=== PATIENT | female | born 1940 | race Caucasian/White ===

== ENCOUNTER 2016-05-29 11:37 | Emergency (ER) | payer MEDICARE, OTHER ==
[~2016-05-29 11:37] MED LIST: ADVAIR 250/28 DISKU1 IH; CYCLOBENZ5 MG PO; DETROL LA4 PO; DEXILANT60 MG PO; FEOSOL45 M1 PO; GLUCOSAMINE CH1 EAC2 PO; IPRATROPIUM BROM3 M1 INH; MULTIVITAMIN1 SGL PO; SPIRIVA18 MCG INH; VITAMIN C PURE500 M1 PO
[2016-05-29] MEDS ORDERED: LEVAQUIN 750MG750 M1 PO (13:41)
[2016-05-29 14:38] VITALS: BP 126/82
[2016-05-29] MEDS ORDERED: PANTOPRAZOLE SO40 MG PO (17:24)
[2016-05-30] MEDS ORDERED: ADVAIR DISKUS1 DS2 IH (16:29)
[2016-05-30] MEDS ORDERED: RT SPIRIVA INH18 MCG IH (16:32)
[2016-05-30] MEDS ORDERED: CARVEDILOL3.125 MG PO (23:50)
[2016-06-20] MEDS ORDERED: SEPTRA 400 MG-1 TAB PO (16:09)
[2016-06-20] MEDS ORDERED: DIGOX0.125 MG PO (16:10)
== END 2016-05-29 14:59 | disposition other institution (70) ==
LOC: ED 11:37
DX: R06.00 Dyspnea, unspecified (principal); R09.02 Hypoxemia; J44.1 Chronic obstructive pulmonary disease with (acute) exacerbation; J44.0 Chronic obstructive pulmonary disease with (acute) lower respiratory infection
CPT/HCPCS: J2930; Q9967

== ENCOUNTER 2016-05-29 14:37 | Inpatient (IN) | payer MEDICARE, OTHER ==
[~2016-05-29 14:37] MED LIST changes: +LEVAQUIN 750MG750 M1 PO
--- NOTE | 2016-05-29 15:00 | NUR ---
Pt admitted to Rm #205 at this time from the ED, breathing stable on 10L O2 via Non Rebreather, at bedside, pt states she is "feeling much better" than prior when she arrived to the ED, recieved 1 dose of solumedrol and x2 breathing tx's in the ED, does not use O2 at home, states she feels she "just let her COPD slip away from her and get out of control," complex assessment completed, chronic pain mentioned in back, will have Reynaldo order a KPad for pain relief, denies pain anywhere else, 20G IV in Rt FA placed in ED by this nurse, still functioning appropriately, will get patient settled to room, oriented to call light, pt has a strong steady gait, fully alert and oriented, will continue with admission process at this time
[2016-05-29 15:24] VITALS: BP 124/70
[2016-05-29 16:08] VITALS: BP 124/70
[2016-05-29] MEDS ORDERED: PANTOPRAZOLE SO40 MG PO (17:24)
[2016-05-29 18:45] VITALS: BP 98/53
--- NOTE | 2016-05-29 20:06 | NUR ---
NOTIFIED YENNY BANKS AT THIS TIME OF PATIENT LOW BP THIS EVENING, AT SUPPER BP WAS 98/53, AT THIS TIME WE REASSED BP AND IT IS CURRENTLY 82/53, YENNY REPORTS LONG PT REMAINS ASYMPTOMATIC WE NEED TO PUSH THE FLUIDS AND MONITOR HER VITAL SIGNS CLOSELY, PT EDUCATED TO PLEASE ALERT STAFF IF SHE BEGINS FEELING SYMPTOMS AND SHE STATES "OH HONEY, I TYPICALLY RUN LOW, THIS IS NOT ANYTHING TO WORRY ABOUT YET.", WILL CONTINUE TO MONITOR PATIENT AND PUSH FLUIDS AT THIS TIME
--- NOTE | 2016-05-29 20:34 | NUR ---
Report received from Giovanna Smiley RN
--- NOTE | 2016-05-29 20:35 | NUR ---
Resting in bed, awake and a/o x 3. Pt doing breathing treatment at this time. Denies having any pain, SOB, or chest pain. Denies having any needs or concerns.
--- NOTE | 2016-05-29 22:54 | NUR ---
Pt resting in bed, awake and a/o x 3. Sitting up reading tablet. None re-breather removed and Nasal Cannula applied at 4L/NC. Pt denied pain or SOB.
[2016-05-29 22:56] VITALS: BP 111/66
[2016-05-30] VITALS (9 sets, daily range): BP systolic 94–143; BP diastolic 56–90
--- NOTE | 2016-05-30 00:45 | NUR ---
0017 to 0037 Pt given IV solu-medrol 125mg over 20 minutes. Tolerated without difficulty. IV site patent, no redness, no swelling and none tender to touch. Nasal Cannula on at 4L/NC. Pt Awake and a/o x 3. Pleasant and talkative. Pt visited with me while medication being given. Pt denied SOB, chest pain. Denied having any concerns.
--- NOTE | 2016-05-30 02:30 | NUR ---
Q hourly checks done. Bed alarm on. Eyes closed even, none labored respirations. Oxygen on at 4L/NC. Pt has repositioned self. Awaken for 0200 vital signs. Pt denied having any c/o's of pain or SOB.
--- NOTE | 2016-05-30 04:11 | NUR ---
Resting in bed, eyes closed, even, none labored respirations. Bed alarm on. No facial grimacing noted.
--- NOTE | 2016-05-30 05:38 | NUR ---
Awake and a/o x 3. Watching TV. Pt denies SOB, or chest pain. Denies having any concerns or needs. Oxygen on at 4L/NC.
--- NOTE | 2016-05-30 07:19 | NUR ---
Report given to Rema Rdz RN
--- NOTE | 2016-05-30 07:20 | NUR ---
REPORT RECEIVED FROM VALERIY SMITH
--- NOTE | 2016-05-30 08:00 | NUR ---
PATIENT LYING IN BED WITH HEAD OF BED ELEVATED. SHIFT ASSESSMENT COMPLETE. PATIENT ALERT AND ORIENTED X4. DENIES ANY PAIN OR DISCOMFORTS AT THIS TIME. REPORTS FEELING A LOT BETTER THIS MORNING. REPORTS NOT SLEEPING WELL LASTNIGHT. STATES "I DON'T THINK I'M GOING TO BE ABLE TO SLEEP FOR A MONTH WITH THESE STEROIDS" WHEN ASKED IF SHE WAS EXPERIENCING ANY SHORTNESS OF BREATH STATES "NO MORE THAN MY USUAL, WELL MAYBE SLIGHTLY MORE THAN MY USUAL BUT BARELY" ON OXYGEN VIA NASAL CANNULA AT 4L. STATES "I'M READY READY TO GO HOME" PATIENT'S CALL LIGHT WITHIN REACH. BED ALARM ON.
--- NOTE | 2016-05-30 10:30 | NUR ---
KIT GIRALDO IN TO SEE PATIENT.
--- NOTE | 2016-05-30 11:00 | NUR ---
patient's oxygen decreased to 3L via nasal cannula. sp02 88% on 3L when rechecked. oxygen turned back up to 4L oxygen via nasal cannula. anders torres notified.
--- NOTE | 2016-05-30 15:45 | NUR ---
TIGHTENER REPORTS THAT UPON ENTERING PATIENT'S ROOM TO TAKE PATIENT ON WALK PATIENT NOT WEARING OXYGEN. PATIENT AMBULATED TO NURSES STATION ON ROOM AIR AND BACK TO ROOM.SP02 84% UPON RETURNING FROM WALK. PATIENT PLACED BACK ON OXYGEN VIA NASAL CANNULA AT 4L. AMBULATED IN HALLS WITH 4L OXYGEN ON. SP02 90-91% ON 4L MAJORITY OF WALK. DROPPED DOWN TO 84% AT END OF WALK. PATIENT QUICKLY RECOVERED ONCE AT REST BACK TO LOW 90'S. PATIENT AMBULATED WITH STANDBY ASSIST OF 1 AND GAIT BELT. TOLERATED WALK WELL.
[2016-05-30] MEDS ORDERED: ADVAIR DISKUS1 DS2 IH (16:29)
[2016-05-30] MEDS ORDERED: RT SPIRIVA INH18 MCG IH (16:32)
--- NOTE | 2016-05-30 18:46 | NUR ---
Pt anticipates returning to her home upon discharge where she lives w/ her . The goal is for her to recover to where she does not need O2 as she has not had home O2 previously. She may benefit from a SWB stay to work w/ therapies for energy conservation to help keep her O2 sats >90%.
--- NOTE | 2016-05-30 19:20 | NUR ---
REPORT GIVEN TO VALERIY CHURCHILL
--- NOTE | 2016-05-30 21:04 | NUR ---
SANDING MACHINE OPERATOR OR TENDER assisted pt to restroom without O2. Pt O2 sat then checked after getting back to bed. Pt's O2 sat was 71% on RA. Oxygen then reapplied at 4L NC. Pt instructed to take deep breaths. After approx 1 min, O2 sat was in the low 90's. Pt and SANDING MACHINE OPERATOR OR TENDER instructed to have pt wear O2 at ALL times. Will cont to monitor.
--- NOTE | 2016-05-30 22:40 | NUR ---
Pt called RN into room stating she had an episode of sudden burning in the middle of the chest. States it is gone now and it only lasted 30 to 45 sec. Pulse checked and was in the 80's. Instructed pt to let RN know if it happens again
[2016-05-30] MEDS ORDERED: CARVEDILOL3.125 MG PO (23:50)
--- NOTE | 2016-05-30 23:50 | NUR ---
AT 2255, PT CALLED RN INTO ROOM STATING SHE WAS GETTING THAT SAME BURNING FEELING IN THE MIDDLE OF HER CHEST. VITAL SIGNS TAKEN: 132/82, HR IN 80', O2 96% ON 4L NC. PT THEN STATED THE BURNING/PRESSURE/PAIN THEN WAS GONE. WHILE RN WAS IN ROOM TALKING WITH PT, PT STATED "HERE COMES ANOTHER ONE". RN THEN CHECKED PULSE ON PT'S WRIST AND IT WAS RAPID. RN THEN DID AT EKG AT 2324 AND IT WAS THEN SINUS RHYTHM. AT 2325 PT THEN FELT ANOTHER EPISODE COME ON. ANOTHER EKG WAS OBTAINED AND IT SHOWED SVT WITH A HEART RATE OF 179. ALINA GREY ELIZABETH WAS THEN CALLED AT 2330. PT PLACED ON TELE TO KEEP A CLOSER EYE ON RHYTHMS. SHE ASKED THAT DR EASTON ASSESS PT AND GIVE ORDERS. IS NOW AT BEDSIDE. PT HAS HAD SEVERAL MORE EPISODES DURING THIS TIME. DR EASTON THEN GAVE THIS RN AN ORDER FOR METOPOLOL 5 MG IV. MED WAS GIVEN AT 2341. PT HAS HAD NO MORE EPISODES SINCE METOPOLOL WAS GIVEN. WILL CONT TO MONITOR CLOSELY.
[2016-05-31] VITALS (9 sets, daily range): BP systolic 93–145; BP diastolic 56–88
--- NOTE | 2016-05-31 01:05 | NUR ---
AT 0035, PT HAD 2 MORE EPISODES OF SVT FAIRLY CLOSE TOGETHER WITH HR IN 160'S. DR EASTON INFORMED. RECIEVED 2ND ORDER FOR METOPOLOL 5MG IV. MEDICATION GIVEN AT 0040. VS STABLE BEFORE AND AFTER MED GIVEN. PT INSTRUCTED AGAIN TO LET RN KNOW IF SHE HAS ANOTHER EPISODE AND THAT SHE IS ALSO BEING MONITORED. PT DENIES ANY OTHER NEEDS AT THIS TIME.
--- NOTE | 2016-05-31 02:55 | NUR ---
PT HAS NOT SLEPT YET TONIGHT. PT SITTING UP IN BED PLAYING ON TABLET. PT STATES SHE HAS HAD ONE VERY SMALL EPISODE SINCE LAST DOES OF IV METOPOLOL. STATES IT DIDN'T HURT BAD AND LASTED ONLY ABOUT 5 SEC. PT DENIES ANY PAIN OR NEEDS AT THIS TIME. STATES SHE WILL TRY TO GO TO SLEEP SOON. WILL CONT TO MONITOR.
--- NOTE | 2016-05-31 06:14 | NUR ---
END OF SHIFT NOTE: PT SLEPT VERY LITTLE THROUGHOUT THE NIGHT. PT HAS HAD ONLY 3 EPISODES OF SVT SINCE LAST METOPOLOL GIVEN AT 0040 AND THEY HAVE BEEN LESS SEVERE AND SHORTER IN LENGTH. FIRST ONE WAS APPROX 5 SEC AT 0144, 2ND WAS APPROX 30 SEC AT 0355 AND THIRD WAS APPROX 15 SEC AT 0359. I HAVE NOT SEEN PT HAVE ANY MORE ON THE MONITOR SINCE THEN. PT IS CURRENTLY RESTING WITH EYES CLOSED. SHE IS IN SR WITH HR IN THE 70'S. WILL CONT TO MONITOR.
--- NOTE | 2016-05-31 07:47 | NUR ---
REPORT GIVEN TO VALERIY ALANIZ.
--- NOTE | 2016-05-31 08:52 | NUR ---
Shift assessment complete. Pt sitting up in bed. O2 @ 3.5L via NC. Pt with several episodes of pain/burning to L chest this AM. Noted SVT on telemetry at these times. Episodes noted to last approx 30 seconds and pain subsides in 1-2 minutes. Pt reports having this pain in past but pain more intense during this hospitalization.
--- NOTE | 2016-05-31 09:48 | NUR ---
Pt refuses inhaler stating that "it makes me cough up green junk" also reports that it caused a "lung infection" in the past.
--- NOTE | 2016-05-31 10:05 | NUR ---
Laura Mathis APRN calls for update on pt. States she will be in to see pt this morning.
--- NOTE | 2016-05-31 10:37 | NUR ---
Laura Mathis APRN at bedside.
--- NOTE | 2016-05-31 19:01 | NUR ---
Contacted [facility] after hours to request services for a possible d/c tomorrow. Rep states that they normally only go out after hours for hospice contracts but they may be able to make an exception but would have to contact her human resources department supervisor. States that they do not have liquid O2 available, just O2 concentrators. States that they would need an order for O2 and Medicare form filled out with @ rest sats, activity sats and O2 needed for sats >90%.
--- NOTE | 2016-05-31 19:25 | NUR ---
Jolene received from Mary CROOKS. Patient sitting up in chair. Oxygen in place at 3.5L/NC. Tele on Reating HR 81. Denies pain or palpitations at this time. Denies wants or needs.
--- NOTE | 2016-05-31 20:25 | NUR ---
HR in 120-130's consistently past 20 minutes. Patient sitting in chair playing on IPAD. States "I can feel it but it doesn't burn or hurt.". at bedside. Patient stated she did "hot foot it to the door to catch my Grandaughter who forgot her flower, I bet that started it off". Belinda Mathis APRN notified. Order received to give dose of Coreg 6.25 MG PO now. Medication given. Assessment completed. Denies needs.
--- NOTE | 2016-05-31 21:40 | NUR ---
HR continues to be in 120-130 range. Patient without pain or Sx. Dr. Holm orders an EKG.
--- NOTE | 2016-05-31 22:45 | NUR ---
No change in HR, Continues in 120-130's. Patient reports a feeling of heaviness but no pain. B/{ 112/85. Resting in bed, playing games on IPAD. Laura Mathis APRN notified.
--- NOTE | 2016-05-31 23:16 | NUR ---
New INT #20 gauge started by Marjorie To RN. x1 attempt. Metoprolol 5 MG given IV over 5 Minutes by Marjorie To RN. Patient tolerated well. Continues to deny pain.
--- NOTE | 2016-05-31 23:30 | NUR ---
HR remains tachy at 110-130's. 2nd dose of IV Metoprolol admininstered by Javier CROOKS.
--- NOTE | 2016-06-01 00:12 | NUR ---
patient sleeping, resp even/unlabored, telemetry showed a 11 and half minute run of sinus tachycardia with a rate of 144, given 3rd dose of IV metoprolol per Belinda Mathis's order, will continue to monitor telemetry
--- NOTE | 2016-06-01 03:03 | NUR ---
Patient has been sleeping without pain or sx. HR 110-120's. Oxygen in place at 3.5L/NC. Bed alarm on. Call light in reach.
[2016-06-01 03:13] VITALS: BP 121/73
--- NOTE | 2016-06-01 04:08 | NUR ---
Rests with eyes closed. No signs of pain or distress. HR 110's.
--- NOTE | 2016-06-01 06:17 | NUR ---
Rocael calls to check on patient. Updated by Javier COROKS. New order to increase AM dose of Coreg to 12.5 MG.
[2016-06-01 06:34] VITALS: BP 113/85
--- NOTE | 2016-06-01 07:15 | NUR ---
Report to Mary CROOKS
--- NOTE | 2016-06-01 08:04 | NUR ---
Pt sitting up in bed. Shift assessment complete. HR continues between 102-120 and irregular. Pt denies pain or burning in chest this AM.
--- NOTE | 2016-06-01 09:13 | NUR ---
Laura Mathis APRN at pt bedside.
--- NOTE | 2016-06-01 10:15 | NUR ---
Per request of Laura Mathis APRN, check O2 sats, 93% on 3.5L O2, 84% RA while sitting, 86% RA during ambulation, added O2 during ambulation, 93% on 6L O2. Pt standing at nurses station talking with Laura Mathis APRN, states "things are starting to go caceres." Assist pt to sit in chair. Sits several minutes then is able to ambulate back to room without difficulty. Once seated back in room, return O2 to 3.5L.
[2016-06-01 10:58] VITALS: BP 97/53
[2016-06-01 15:05] VITALS: BP 95/55
--- NOTE | 2016-06-01 17:41 | NUR ---
Pt has denied chest pain/tightness/burning during current shift. HR has fluctuated between 97-130's today. Pt continues in Afib.
[2016-06-01 18:29] VITALS: BP 101/64
--- NOTE | 2016-06-01 19:15 | NUR ---
Report received from Syed Quick RN and care assumed. Pt resting in chair, no needs or concerns at this time. Family in room. Call light in reach, bed alarm on.
--- NOTE | 2016-06-01 22:32 | NUR ---
Pt resting in bed with no needs or concerns at this time. Denies pain. Report given to Luana Jenkins, COFFEE SHOP ATTENDANT and care transfered. Call light in reach, bed alarm on.
--- NOTE | 2016-06-01 22:33 | NUR ---
Report received from Ileana CROOKS. Patient restsing supine in bed playing on IPAD. Oxygen in place at 3.5L/NC. Denies pain. HR continues in Afib at rate 100-110s per TELE.
[2016-06-01 23:11] VITALS: BP 120/71
--- NOTE | 2016-06-01 23:30 | NUR ---
Awaken for scheduled Cardizem. Denies pain. Oxygen in place. HR 100-120's remains in Afib.
[2016-06-02 03:18] VITALS: BP 129/74
--- NOTE | 2016-06-02 03:41 | NUR ---
Rests with eyes closed. No signs of pain or distress. HR 77, continues in A-fib.
--- NOTE | 2016-06-02 05:36 | NUR ---
Awaken for AM V/S and scheduled Diltiazem. VSS. Denies pain. Telemetry shows A-fib, rate controlled. Denies wants or needs.
[2016-06-02 06:20] VITALS: BP 121/79
--- NOTE | 2016-06-02 07:22 | NUR ---
Report to Tita CROOKS
--- NOTE | 2016-06-02 07:30 | NUR ---
report from Ivanna BLUE
--- NOTE | 2016-06-02 07:50 | NUR ---
Belinda Mathis APRN at [facility], discuss plan of care.
--- NOTE | 2016-06-02 09:45 | NUR ---
Vandana Mathis APRN notified of patients request to not take Coumadin but use an alternate that has no dietary restrictions.
--- NOTE | 2016-06-02 09:59 | NUR ---
up in chair, spouse is visiting, oxygen remains at 3.5l/nc continuous, denies complian tor request
--- NOTE | 2016-06-02 10:48 | NUR ---
several attempts to make a follow-up appointment with Dr. Baron, office states he is not in [place] until 06/20, attempting to make an appiontment in [place] to see him sooner.
[2016-06-02] MEDS ORDERED: CARDIZEM CD240 M1 PO (10:51)
[2016-06-02] MEDS ORDERED: PREDNISONE20 MG PO (10:51)
[2016-06-02] MEDS ORDERED: ELIQUIS2.5 MG PO (10:51)
[2016-06-02] MEDS ORDERED: CARVEDILOL6.25 MG PO (10:51)
[2016-06-02 11:22] VITALS: BP 80/53
[2016-06-02 15:17] VITALS: BP 124/51
--- NOTE | 2016-06-02 16:01 | NUR ---
home isntructions are reviewed with patient and she expresses understanding, there is much discussion about new home meds and current home meds, she expresses eagerness to go home
--- NOTE | 2016-06-02 16:23 | NUR ---
spouse returns with home portable oxygen, patient and spouse discuss workings of oxygen, patient is placed on her own at 4l/nc, to w/c dismissed to care of spouse, home per POV.
[2016-06-20] MEDS ORDERED: SEPTRA 400 MG-1 TAB PO (16:09)
[2016-06-20] MEDS ORDERED: DIGOX0.125 MG PO (16:10)
== END 2016-06-02 16:22 | disposition home or self-care (01) | DRG 191 ==
LOC: MED/SURG 14:37
PROVIDERS: ADMIT Physician Assistant
DX: J44.0 Chronic obstructive pulmonary disease with (acute) lower respiratory infection (principal); I47.1 Supraventricular tachycardia; J20.8 Acute bronchitis due to other specified organisms; I48.91 Unspecified atrial fibrillation; J44.1 Chronic obstructive pulmonary disease with (acute) exacerbation; R09.02 Hypoxemia; K21.9 Gastro-esophageal reflux disease without esophagitis; D64.9 Anemia, unspecified; R59.0 Localized enlarged lymph nodes; Z87.891 Personal history of nicotine dependence
CPT/HCPCS: J1650; J1956; J2930; J7512

== ENCOUNTER → 2016-06-04 | Outpatient (CLI) | payer MEDICARE, OTHER ==
[~2016-06-04] MED LIST changes: +ADVAIR DISKUS1 DS2 IH; +CARDIZEM CD240 M1 PO; +CARVEDILOL3.125 MG PO; +CARVEDILOL6.25 MG PO; +COREG 3.123.125 MG/T PO; +DIGOX0.125 MG PO; +ELIQUIS2.5 MG PO; +PANTOPRAZOLE SO40 MG PO; +PREDNISONE20 M1 PO; +PREDNISONE20 MG PO; +RT SPIRIVA INH18 MCG IH; +SEPTRA 400 MG-1 TAB PO
== END ==
LOC: VAS 16:23
DX: I48.91 Unspecified atrial fibrillation (principal)

== ENCOUNTER → 2016-06-18 | Outpatient (CLI) | payer MEDICARE, OTHER ==
[2016-06-02 15:17] VITALS: BP 124/51
== END ==
LOC: LAB 10:23
DX: I48.91 Unspecified atrial fibrillation (principal)

== ENCOUNTER → 2016-06-20 | Outpatient (CLI) | payer MEDICARE, OTHER ==
[2016-06-20 16:12] VITALS: BP 116/56
== END ==
LOC: AMSURD 16:01
DX: I48.0 Paroxysmal atrial fibrillation (principal)

== ENCOUNTER → 2016-07-04 | Outpatient (CLI) | payer MEDICARE, OTHER ==
[2016-07-04 10:36] VITALS: BP 98/48
== END ==
LOC: AMSURD 10:31
DX: I48.91 Unspecified atrial fibrillation (principal)

== ENCOUNTER → 2016-08-19 | Day surgery (SDC) | payer MEDICARE ==
[2016-07-04 10:36] VITALS: BP 98/48
== END ==
LOC: MSO 11:26
DX: Z12.11 Encounter for screening for malignant neoplasm of colon (principal); K62.1 Rectal polyp; K63.5 Polyp of colon; D12.2 Benign neoplasm of ascending colon; K57.30 Diverticulosis of large intestine without perforation or abscess without bleeding; Z86.010 Personal history of colon polyps; I48.91 Unspecified atrial fibrillation; Z87.891 Personal history of nicotine dependence; J44.9 Chronic obstructive pulmonary disease, unspecified; K21.9 Gastro-esophageal reflux disease without esophagitis; Z80.0 Family history of malignant neoplasm of digestive organs
CPT/HCPCS: 00810; J3010; J7120

== ENCOUNTER 2016-10-06 01:25 | Emergency (ER) | payer MEDICARE ==
[~2016-10-06] VITALS: Ht 170.2 cm; Wt 47.7 kg
[~2016-10-06 01:25] MED LIST changes: -COREG 3.123.125 MG/T PO; -PREDNISONE20 M1 PO
[2016-10-06] MEDS ORDERED: COREG 3.123.125 MG/T PO (02:05)
[2016-10-06] MEDS ORDERED: LEVAQUIN 750MG750 M1 PO (03:40)
[2016-10-06] MEDS ORDERED: PREDNISONE20 M1 PO (03:40)
[2016-10-06 04:48] VITALS: BP 99/48
== END 2016-10-06 04:48 | disposition home or self-care (01) ==
LOC: ED 01:25
DX: J44.0 Chronic obstructive pulmonary disease with (acute) lower respiratory infection (principal); J18.9 Pneumonia, unspecified organism; I48.91 Unspecified atrial fibrillation; Z79.01 Long term (current) use of anticoagulants; I95.9 Hypotension, unspecified; J96.01 Acute respiratory failure with hypoxia; E87.1 Hypo-osmolality and hyponatremia; D64.9 Anemia, unspecified; K21.9 Gastro-esophageal reflux disease without esophagitis; Z99.81 Dependence on supplemental oxygen
CPT/HCPCS: J0696; J2930; J3370; J7030; J7050

== ENCOUNTER → 2016-10-23 | Outpatient (CLI) | payer MEDICARE ==
[2016-10-06 04:48] VITALS: BP 99/48
[~2016-10-23] MED LIST changes: +COREG 3.123.125 MG/T PO; +PREDNISONE20 M1 PO
== END ==
LOC: RAD 13:56
DX: Z87.01 Personal history of pneumonia (recurrent) (principal)

== ENCOUNTER 2016-11-27 15:42 | Emergency (ER) | payer MEDICARE ==
[2016-11-27] MEDS ORDERED: GOOD NEIGHBOR150 MG PO (15:57)
[2016-11-27 17:50] VITALS: BP 136/57
== END 2016-11-27 17:44 | disposition home or self-care (01) ==
LOC: ED 15:42
DX: K81.9 Cholecystitis, unspecified (principal); J44.9 Chronic obstructive pulmonary disease, unspecified; C67.9 Malignant neoplasm of bladder, unspecified; K21.9 Gastro-esophageal reflux disease without esophagitis; I71.9 Aortic aneurysm of unspecified site, without rupture; Z79.01 Long term (current) use of anticoagulants; I48.91 Unspecified atrial fibrillation
CPT/HCPCS: J2405; J3010; Q9967

== ENCOUNTER → 2017-12-02 | Outpatient (CLI) | payer MEDICARE, OTHER ==
[~2017-12-02] MED LIST changes: +GOOD NEIGHBOR150 MG PO
[2017-12-02 15:54] LABS: EOS # 0.1 (0.04-0.40); EOS % 1.7 % (1.0-5.0); HEMATOCRIT 38.2 % (37.0-47.0); HEMOGLOBIN 12.1 g/dL (12.5-16.0); LYMPH# 1.3 (1.50-4.00); MEAN CELL VOLUME 101 fl (78-100); MEAN CORPUSCULAR HEMOGLOBIN 32 pg (27-31); MEAN CORPUSCULAR HGB CONC 32 g/dL (33-37); MEAN PLATELET VOLUME 9.3 fl (7.4-10.4); MONO # 0.5 (0.20-0.80); NEU # 3.3 (1.40-6.50); PLATELET COUNT 220 K/mm3 (130-400); RED BLOOD COUNT 3.79 M/mm3 (4.10-5.30); RED CELL DISTRIBUTION WIDTH 14.6 % (11.5-14.5); WHITE BLOOD COUNT 5.2 K/mm3 (4.8-10.8)
[2017-12-02 15:59] LABS: ALBUMIN 4.1 g/dL (3.5-5.0); CALCIUM 9.4 mg/dL (8.4-10.2); POTASSIUM 3.6 mmol/L (3.6-5.0); TOTAL BILIRUBIN 0.9 mg/dL (0.2-1.3)
[2017-12-02 18:43] LABS: URINE APPEARANCE CLEAR; URINE COLOR YELLOW
[2017-12-02 18:44] LABS: URINE BILIRUBIN NEGATIVE (NEGATIVE); URINE BLOOD NEGATIVE (NEGATIVE); URINE GLUCOSE NEGATIVE (NEGATIVE); URINE KETONE NEGATIVE (NEGATIVE); URINE LEUKOCYTE ESTERASE NEGATIVE (NEGATIVE); URINE NITRATE NEGATIVE (NEGATIVE); URINE PROTEIN(semi-quant) NEGATIVE (NEGATIVE); URINE UROBILINOGEN NORMAL (NORMAL); URINE WBC 0-1 /hpf (0-3)
== END ==
LOC: RAD 14:57
PROVIDERS: Physician Assistant
DX: R63.4 Abnormal weight loss (principal); R19.7 Diarrhea, unspecified

== ENCOUNTER → 2017-12-04 | Outpatient (CLI) | payer MEDICARE, OTHER | LOC: LAB 12:37 | DX: R19.7 Diarrhea, unspecified (principal); R63.4 Abnormal weight loss ==

== ENCOUNTER → 2017-12-12 | Outpatient (CLI) | payer MEDICARE, OTHER | LOC: LAB 12:01 | DX: R19.7 Diarrhea, unspecified (principal); R63.4 Abnormal weight loss ==

== ENCOUNTER → 2017-12-30 | Outpatient (CLI) | payer MEDICARE, OTHER ==
[~2017-12-30] VITALS: Ht 170.2 cm; Wt 47.7 kg
[2017-12-30 14:04] VITALS: BP 112/69
== END ==
LOC: AMSURD 13:49
DX: I48.0 Paroxysmal atrial fibrillation (principal)

== ENCOUNTER → 2018-05-27 | Outpatient (CLI) | payer MEDICARE, OTHER ==
[2017-12-30 14:04] VITALS: BP 112/69
== END ==
LOC: LAB 17:36
DX: J18.9 Pneumonia, unspecified organism (principal); J44.9 Chronic obstructive pulmonary disease, unspecified; B37.0 Candidal stomatitis; R09.02 Hypoxemia

== ENCOUNTER → 2018-05-27 | Outpatient (CLI) | payer MEDICARE, OTHER ==
[2017-12-30 14:04] VITALS: BP 112/69
[2018-05-27 16:44] LABS: ALBUMIN 4.1 g/dL (3.5-5.0); CALCIUM 9.4 mg/dL (8.4-10.2); TOTAL BILIRUBIN 0.3 mg/dL (0.2-1.3); TOTAL PROTEIN 7.2 g/dL (6.3-8.2)
[2018-05-27 16:46] LABS: EOS # 0.1 (0.04-0.40); HEMATOCRIT 38.5 % (37.0-47.0); HEMOGLOBIN 11.9 g/dL (12.5-16.0); LYMPH# 1.4 (1.50-4.00); MEAN CELL VOLUME 100 fl (78-100); MEAN CORPUSCULAR HEMOGLOBIN 31 pg (27-31); MEAN CORPUSCULAR HGB CONC 31 g/dL (33-37); MEAN PLATELET VOLUME 9.3 fl (7.4-10.4); MONO # 0.5 (0.20-0.80); NEU # 3.2 (1.40-6.50); PLATELET COUNT 175 K/mm3 (130-400); RED BLOOD COUNT 3.87 M/mm3 (4.10-5.30); RED CELL DISTRIBUTION WIDTH 15.2 % (11.5-14.5); WHITE BLOOD COUNT 5.1 K/mm3 (4.8-10.8)
== END ==
LOC: LAB 16:22
PROVIDERS: Physician Assistant
DX: J18.9 Pneumonia, unspecified organism (principal); B37.0 Candidal stomatitis; J44.9 Chronic obstructive pulmonary disease, unspecified; R09.02 Hypoxemia

== ENCOUNTER → 2018-06-25 | Outpatient (CLI) | payer MEDICARE, OTHER ==
[2018-06-23 11:13] VITALS: BP 118/76
[~2018-06-25] MED LIST changes: +ACIDOPHILUS1 EAC3 PO; +AZITHROMYCIN500 M2 PO; +DIFLUCAN100 M1 PO; +MIRAPEX0.5 MG PO; +MUCINEX 60600 MG/TA1 PO; +REQUIP 0.5MG0.5 MG PO; +XYZAL5 MG PO
[2018-06-25 16:08] LABS: HEMATOCRIT 37.6 % (37.0-47.0); HEMOGLOBIN 11.6 g/dL (12.5-16.0); MEAN CELL VOLUME 98 fl (78-100); MEAN CORPUSCULAR HEMOGLOBIN 30 pg (27-31); MEAN CORPUSCULAR HGB CONC 31 g/dL (33-37); MEAN PLATELET VOLUME 9.2 fl (7.4-10.4); PLATELET COUNT 275 K/mm3 (130-400); RED BLOOD COUNT 3.85 M/mm3 (4.10-5.30); RED CELL DISTRIBUTION WIDTH 15.3 % (11.5-14.5); WHITE BLOOD COUNT 8.7 K/mm3 (4.8-10.8)
[2018-06-25 16:17] LABS: ALBUMIN 3.9 g/dL (3.5-5.0); CALCIUM 9.2 mg/dL (8.4-10.2); POTASSIUM 4.3 mmol/L (3.6-5.0); TOTAL BILIRUBIN 0.6 mg/dL (0.2-1.3); TOTAL PROTEIN 6.9 g/dL (6.3-8.2)
[2018-06-25 16:39] LABS: LYMPHOCYTE 14 % (20-51); MONOCYTE 10 % (3-10); NEUTROPHILS 76 % (42-75)
[2018-06-25 16:40] LABS: D-DIMER 0.65 mg/L FEU (0.15-0.50)
== END ==
LOC: LAB 15:42
PROVIDERS: Physician Assistant
DX: R60.0 Localized edema (principal); K21.9 Gastro-esophageal reflux disease without esophagitis; I48.91 Unspecified atrial fibrillation; J44.9 Chronic obstructive pulmonary disease, unspecified

== ENCOUNTER → 2018-07-06 | Outpatient (CLI) | payer MEDICARE, OTHER ==
[2018-06-23 11:13] VITALS: BP 118/76
[2018-07-06 17:11] LABS: ALBUMIN 3.4 g/dL (3.4-4.8); CALCIUM 9.3 mg/dL (8.4-10.2); POTASSIUM 4.2 mmol/L (3.5-5.1); TOTAL BILIRUBIN 0.4 mg/dL (0.2-1.2); TOTAL PROTEIN 5.7 g/dL (6.2-8.1)
[2018-07-06 17:50] LABS: EOS % 0.1 % (1.0-5.0); HEMATOCRIT 38.2 % (37.0-47.0); HEMOGLOBIN 11.6 g/dL (12.5-16.0); MEAN CELL VOLUME 99 fl (78-100); MEAN CORPUSCULAR HEMOGLOBIN 30 pg (27-31); MEAN CORPUSCULAR HGB CONC 30 g/dL (33-37); MEAN PLATELET VOLUME 8.6 fl (7.4-10.4); MONO # 0.9 (0.20-0.80); NEU # 5.1 (1.40-6.50); PLATELET COUNT 275 K/mm3 (130-400); RED BLOOD COUNT 3.86 M/mm3 (4.10-5.30); RED CELL DISTRIBUTION WIDTH 16.1 % (11.5-14.5); WHITE BLOOD COUNT 8.1 K/mm3 (4.8-10.8)
== END ==
LOC: LAB 16:04
PROVIDERS: Physician Assistant
DX: I48.91 Unspecified atrial fibrillation (principal); J44.9 Chronic obstructive pulmonary disease, unspecified; I95.9 Hypotension, unspecified; K29.70 Gastritis, unspecified, without bleeding; B37.9 Candidiasis, unspecified

== ENCOUNTER → 2018-07-20 | Outpatient (CLI) | payer MEDICARE, OTHER ==
[2018-06-23 11:13] VITALS: BP 118/76
[2018-07-20 16:33] LABS: CALCIUM 9.9 mg/dL (8.4-10.2); DIGOXIN 1.9 ng/mL (0.8-2.0)
== END ==
LOC: LAB 15:16
PROVIDERS: Physician Assistant
DX: I48.0 Paroxysmal atrial fibrillation (principal)

== ENCOUNTER → 2018-08-13 | Outpatient (CLI) | payer MEDICARE, OTHER ==
[2018-06-23 11:13] VITALS: BP 118/76
== END ==
LOC: RAD 08:43
DX: K29.70 Gastritis, unspecified, without bleeding (principal); K76.89 Other specified diseases of liver; D50.9 Iron deficiency anemia, unspecified; R10.13 Epigastric pain
CPT/HCPCS: Q9967

== ENCOUNTER → 2018-10-14 | Day surgery (SDC) | payer MEDICARE, OTHER ==
[2018-06-23 11:13] VITALS: BP 118/76
== END ==
LOC: MSO 07:28
DX: Z12.11 Encounter for screening for malignant neoplasm of colon (principal); D12.8 Benign neoplasm of rectum; D12.5 Benign neoplasm of sigmoid colon; K63.5 Polyp of colon; J44.9 Chronic obstructive pulmonary disease, unspecified; G25.81 Restless legs syndrome; Z79.01 Long term (current) use of anticoagulants; I48.91 Unspecified atrial fibrillation; K21.9 Gastro-esophageal reflux disease without esophagitis; D64.9 Anemia, unspecified; I49.3 Ventricular premature depolarization; Z82.5 Family history of asthma and other chronic lower respiratory diseases; Z82.49 Family history of ischemic heart disease and other diseases of the circulatory system; Z86.010 Personal history of colon polyps; Z80.0 Family history of malignant neoplasm of digestive organs; Z90.710 Acquired absence of both cervix and uterus; Z95.0 Presence of cardiac pacemaker
CPT/HCPCS: 00811; J2704; J7120

== ENCOUNTER → 2019-10-20 | Day surgery (SDC) | payer MEDICARE, OTHER ==
[2018-06-23 11:13] VITALS: BP 118/76
== END ==
LOC: MSO 07:01
DX: K21.9 Gastro-esophageal reflux disease without esophagitis (principal); K22.70 Barrett's esophagus without dysplasia; K22.2 Esophageal obstruction; B37.81 Candidal esophagitis; D50.9 Iron deficiency anemia, unspecified; J43.9 Emphysema, unspecified; Z80.0 Family history of malignant neoplasm of digestive organs; Z86.010 Personal history of colon polyps; Z85.51 Personal history of malignant neoplasm of bladder; Z90.710 Acquired absence of both cervix and uterus; Z99.81 Dependence on supplemental oxygen
CPT/HCPCS: 00731; C1769; J2704; J7120

== ENCOUNTER → 2020-06-08 | Outpatient (CLI) | payer MEDICARE, OTHER ==
[2018-06-23 11:13] VITALS: BP 118/76
[~2020-06-08] MED LIST changes: +ALBUTEROL2.5 MG/3 M IH; +VIBRAMYCIN HYC100 MG PO
[2020-06-08 16:38] LABS: EOS # 0.1 (0.04-0.40); EOS % 1.3 % (1.0-5.0); HEMATOCRIT 40.6 % (37.0-47.0); HEMOGLOBIN 12.9 g/dL (12.5-16.0); LYMPH# 1.8 (1.50-4.00); MEAN CELL VOLUME 101 fl (78-100); MEAN CORPUSCULAR HEMOGLOBIN 32 pg (27-31); MEAN CORPUSCULAR HGB CONC 32 g/dL (33-37); MEAN PLATELET VOLUME 9.4 fl (7.4-10.4); MONO # 0.4 (0.20-0.80); PLATELET COUNT 177 K/mm3 (130-400); RED BLOOD COUNT 4.01 M/mm3 (4.10-5.30); RED CELL DISTRIBUTION WIDTH 14.2 % (11.5-14.5); WHITE BLOOD COUNT 5.4 K/mm3 (4.8-10.8)
[2020-06-08 16:58] LABS: POTASSIUM 4.3 mmol/L (3.5-5.1)
[2020-06-08 16:59] LABS: ALBUMIN 4.5 g/dL (3.4-4.8)
[2020-06-08 17:00] LABS: CALCIUM 9.7 mg/dL (8.3-10.5)
[2020-06-08 17:01] LABS: TOTAL PROTEIN 7.8 g/dL (6.2-8.1)
[2020-06-08 17:03] LABS: TOTAL BILIRUBIN 0.4 mg/dL (0.2-1.2)
== END ==
LOC: LAB 16:17
PROVIDERS: Physician Assistant
DX: Z00.00 Encounter for general adult medical examination without abnormal findings (principal); Z13.29 Encounter for screening for other suspected endocrine disorder; K90.9 Intestinal malabsorption, unspecified

== ENCOUNTER → 2020-06-26 | Outpatient (CLI) | payer MEDICARE, OTHER ==
[2018-06-23 11:13] VITALS: BP 118/76
== END ==
LOC: RAD 11:05
DX: K46.9 Unspecified abdominal hernia without obstruction or gangrene (principal); I71.4 Abdominal aortic aneurysm, without rupture

== ENCOUNTER → 2020-10-25 | Day surgery (SDC) | payer MEDICARE, OTHER | LOC: MSO 07:05 | DX: Z12.11 Encounter for screening for malignant neoplasm of colon (principal); D12.3 Benign neoplasm of transverse colon; K21.00 Gastro-esophageal reflux disease with esophagitis, without bleeding; K22.70 Barrett's esophagus without dysplasia; J44.9 Chronic obstructive pulmonary disease, unspecified; I48.0 Paroxysmal atrial fibrillation; I71.4 Abdominal aortic aneurysm, without rupture; I47.1 Supraventricular tachycardia; I49.3 Ventricular premature depolarization; G89.29 Other chronic pain; M19.90 Unspecified osteoarthritis, unspecified site; Z90.49 Acquired absence of other specified parts of digestive tract; Z85.51 Personal history of malignant neoplasm of bladder; Z90.710 Acquired absence of both cervix and uterus; Z79.899 Other long term (current) drug therapy; Z95.0 Presence of cardiac pacemaker; Z87.19 Personal history of other diseases of the digestive system | CPT/HCPCS: 00813; C1769; J2704; J7120 ==

== ENCOUNTER 2020-11-27 15:44 | Emergency (ER) | payer MEDICARE, OTHER ==
[~2020-11-27] VITALS: Ht 170.2 cm; Wt 47.6 kg
[~2020-11-27 15:44] MED LIST changes: -ALBUTEROL2.5 MG/3 M IH; -VIBRAMYCIN HYC100 MG PO
[2020-11-27 17:06] LABS: BASO # 0.02 (0.02-0.10); EOS # 0.05 (0.04-0.40); EOS % 1.2 % (1.0-5.0); HEMATOCRIT 37.4 % (37.0-47.0); HEMOGLOBIN 11.5 g/dL (12.5-16.0); LYMPH# 1.23 (1.50-4.00); MEAN CELL VOLUME 105 fl (78-100); MEAN CORPUSCULAR HEMOGLOBIN 32 pg (27-31); MEAN CORPUSCULAR HGB CONC 31 g/dL (33-37); MEAN PLATELET VOLUME 9.7 fl (7.4-10.4); MONO # 0.41 (0.20-0.80); NEU # 2.49 (1.40-6.50); PLATELET COUNT 128 K/mm3 (130-400); RED BLOOD COUNT 3.56 M/mm3 (4.10-5.30); RED CELL DISTRIBUTION WIDTH 14.2 % (11.5-14.5); WHITE BLOOD COUNT 4.2 K/mm3 (4.8-10.8)
[2020-11-27 17:11] LABS: ALBUMIN 3.8 g/dL (3.4-4.8); SODIUM 144 mmol/L (136-145)
[2020-11-27 17:12] LABS: CALCIUM 9.6 mg/dL (8.3-10.5)
[2020-11-27 17:13] LABS: D-DIMER 0.3 mg/L FEU (0.15-0.50); GLUCOSE 103 mg/dL (65-105)
[2020-11-27 17:14] LABS: TOTAL PROTEIN 6.7 g/dL (6.2-8.1)
[2020-11-27 17:15] LABS: CARBON DIOXIDE 26 mmol/L (23-31); TOTAL BILIRUBIN 0.3 mg/dL (0.2-1.2)
[2020-11-27 17:19] LABS: AST-SGOT 39 U/L (5-34)
[2020-11-27 17:20] LABS: ALT/SGPT 22 U/L (0-55)
[2020-11-27 17:33] LABS: TROPONIN-I < 0.03 ng/mL (<0.030)
[2020-11-27] MEDS ORDERED: ALBUTEROL2.5 MG/3 M IH (19:17)
[2020-11-27] MEDS ORDERED: PREDNISONE20 M1 PO (19:17)
[2020-11-27] MEDS ORDERED: VIBRAMYCIN HYC100 MG PO (19:17)
[2020-11-27 19:39] VITALS: BP 155/79
== END 2020-11-27 19:39 | disposition home or self-care (01) ==
LOC: ED 15:44
PROVIDERS: Nurse Practitioner Family
DX: I50.9 Heart failure, unspecified (principal); J44.9 Chronic obstructive pulmonary disease, unspecified; I48.91 Unspecified atrial fibrillation; K21.9 Gastro-esophageal reflux disease without esophagitis; F17.210 Nicotine dependence, cigarettes, uncomplicated; Z79.01 Long term (current) use of anticoagulants; Z79.52 Long term (current) use of systemic steroids; Z79.899 Other long term (current) drug therapy
CPT/HCPCS: J1885; J2930

== ENCOUNTER 2020-12-28 02:54 | Emergency (ER) | payer MEDICARE, OTHER ==
[~2020-12-28] VITALS: Ht 170.2 cm; Wt 47.6 kg
[~2020-12-28 02:54] MED LIST changes: +ALBUTEROL2.5 MG/3 M IH; +VIBRAMYCIN HYC100 MG PO
[2020-12-28 03:24] LABS: BASO # 0.02 K/mm3 (0.02-0.10); EOS # 0.02 K/mm3 (0.04-0.40); EOS % 0.4 % (1.0-5.0); HEMATOCRIT 41.6 % (37.0-47.0); HEMOGLOBIN 12.8 g/dL (12.5-16.0); MEAN CELL VOLUME 104 fl (78-100); MEAN CORPUSCULAR HEMOGLOBIN 32 pg (27-31); MEAN CORPUSCULAR HGB CONC 31 g/dL (33-37); MEAN PLATELET VOLUME 9.1 fl (7.4-10.4); MONO # 0.35 K/mm3 (0.20-0.80); NEU # 3.03 K/mm3 (1.40-6.50); PLATELET COUNT 177 K/mm3 (130-400); RED BLOOD COUNT 4.02 M/mm3 (4.10-5.30); WHITE BLOOD COUNT 4.9 K/mm3 (4.8-10.8)
[2020-12-28 03:32] LABS: ALBUMIN 3.9 g/dL (3.4-4.8)
[2020-12-28 03:33] LABS: POTASSIUM 4.2 mmol/L (3.5-5.1)
[2020-12-28 03:34] LABS: CALCIUM 9.8 mg/dL (8.3-10.5)
[2020-12-28 03:37] LABS: TOTAL BILIRUBIN 0.8 mg/dL (0.2-1.2)
[2020-12-28 03:48] LABS: TROPONIN-I 0.32 ng/mL (<0.030)
[2020-12-28 22:10] VITALS: BP 128/78
== END 2020-12-28 22:10 | disposition short-term general hospital (02) ==
LOC: ED 02:54
PROVIDERS: Nurse Practitioner Family
DX: K21.9 Gastro-esophageal reflux disease without esophagitis (principal); I50.9 Heart failure, unspecified; J44.9 Chronic obstructive pulmonary disease, unspecified; I21.4 Non-ST elevation (NSTEMI) myocardial infarction; R79.89 Other specified abnormal findings of blood chemistry; I48.91 Unspecified atrial fibrillation; Z95.0 Presence of cardiac pacemaker; Z99.81 Dependence on supplemental oxygen; Z20.822 Contact with and (suspected) exposure to COVID-19; Z79.01 Long term (current) use of anticoagulants; Z79.899 Other long term (current) drug therapy
CPT/HCPCS: J2270; J2405; J2550; J3490; J7030

== ENCOUNTER → 2021-07-16 | Outpatient (CLI) | payer MEDICARE, OTHER ==
[~2021-07-16] MED LIST changes: +PERFOROMIS20 MCG/21 IH; +PULMICORT0.5 MG/2 M IH
[2021-07-16 11:12] LABS: BASO # 0.02 K/mm3 (0.02-0.10); EOS # 0.04 K/mm3 (0.04-0.40); HEMATOCRIT 39.6 % (37.0-47.0); HEMOGLOBIN 12.3 g/dL (12.5-16.0); LYMPH# 1.18 K/mm3 (1.50-4.00); MEAN CELL VOLUME 105 fl (78-100); MEAN CORPUSCULAR HEMOGLOBIN 33 pg (27-31); MEAN CORPUSCULAR HGB CONC 31 g/dL (33-37); MEAN PLATELET VOLUME 9.4 fl (7.4-10.4); MONO # 0.37 K/mm3 (0.20-0.80); NEU # 2.54 K/mm3 (1.40-6.50); PLATELET COUNT 146 K/mm3 (130-400); RED BLOOD COUNT 3.77 M/mm3 (4.10-5.30); RED CELL DISTRIBUTION WIDTH 13.9 % (11.5-14.5); WHITE BLOOD COUNT 4.2 K/mm3 (4.8-10.8)
[2021-07-16 12:09] LABS: POTASSIUM 3.7 mmol/L (3.5-5.1); SODIUM 145 mmol/L (136-145)
[2021-07-16 12:10] LABS: CALCIUM 9.6 mg/dL (8.3-10.5)
[2021-07-16 12:11] LABS: GLUCOSE 99 mg/dL (65-105)
[2021-07-16 12:12] LABS: CARBON DIOXIDE 32 mmol/L (23-31)
[2021-07-16 12:13] LABS: TOTAL BILIRUBIN 0.6 mg/dL (0.2-1.2)
[2021-07-16 12:16] LABS: AST-SGOT 35 U/L (5-34)
[2021-07-16 12:18] LABS: ALT/SGPT 26 U/L (0-55)
== END ==
LOC: LAB 10:37
PROVIDERS: Physician Assistant
DX: Z13.29 Encounter for screening for other suspected endocrine disorder (principal); E78.5 Hyperlipidemia, unspecified; D64.9 Anemia, unspecified; I48.91 Unspecified atrial fibrillation; I50.9 Heart failure, unspecified; J43.2 Centrilobular emphysema; I25.10 Atherosclerotic heart disease of native coronary artery without angina pectoris; K21.00 Gastro-esophageal reflux disease with esophagitis, without bleeding; G25.81 Restless legs syndrome; K22.2 Esophageal obstruction; F51.04 Psychophysiologic insomnia; M48.00 Spinal stenosis, site unspecified; G62.9 Polyneuropathy, unspecified; K90.9 Intestinal malabsorption, unspecified

== ENCOUNTER 2021-07-20 21:15 | Emergency (ER) | payer MEDICARE, OTHER ==
[~2021-07-20] VITALS: Ht 172.7 cm; Wt 45.5 kg
[~2021-07-20 21:15] MED LIST changes: -PERFOROMIS20 MCG/21 IH; -PULMICORT0.5 MG/2 M IH
[2021-07-20 22:32] LABS: BASO # 0.02 K/mm3 (0.02-0.10); EOS # 0.05 K/mm3 (0.04-0.40); EOS % 0.7 % (1.0-5.0); HEMATOCRIT 34.9 % (37.0-47.0); HEMOGLOBIN 10.9 g/dL (12.5-16.0); LYMPH# 1.36 K/mm3 (1.50-4.00); MEAN CELL VOLUME 105 fl (78-100); MEAN CORPUSCULAR HEMOGLOBIN 33 pg (27-31); MEAN CORPUSCULAR HGB CONC 31 g/dL (33-37); MEAN PLATELET VOLUME 9.7 fl (7.4-10.4); MONO # 0.54 K/mm3 (0.20-0.80); NEU # 5.52 K/mm3 (1.40-6.50); PLATELET COUNT 147 K/mm3 (130-400); RED BLOOD COUNT 3.34 M/mm3 (4.10-5.30); RED CELL DISTRIBUTION WIDTH 13.6 % (11.5-14.5); WHITE BLOOD COUNT 7.5 K/mm3 (4.8-10.8)
[2021-07-20 22:36] LABS: ALBUMIN 3.7 g/dL (3.4-4.8); POTASSIUM 3.6 mmol/L (3.5-5.1)
[2021-07-20 22:37] LABS: CALCIUM 9.4 mg/dL (8.3-10.5)
[2021-07-20 22:38] LABS: TOTAL PROTEIN 6.2 g/dL (6.2-8.1)
[2021-07-20 22:40] LABS: TOTAL BILIRUBIN 0.6 mg/dL (0.2-1.2)
[2021-07-21] MEDS ORDERED: PERFOROMIS20 MCG/21 IH (00:13)
[2021-07-21] MEDS ORDERED: PULMICORT0.5 MG/2 M IH (00:15)
[2021-07-21 02:00] VITALS: BP 111/55
== END 2021-07-21 02:00 | disposition short-term general hospital (02) ==
LOC: ED 21:15
PROVIDERS: Family Medicine
DX: S72.002A Fracture of unspecified part of neck of left femur, initial encounter for closed fracture (principal); Z87.891 Personal history of nicotine dependence; W01.0XXA Fall on same level from slipping, tripping and stumbling without subsequent striking against object, initial encounter
CPT/HCPCS: J3010

== ENCOUNTER 2021-09-26 11:24 | Emergency (ER) | payer MEDICARE, OTHER ==
[~2021-09-26 11:24] MED LIST changes: +PERFOROMIS20 MCG/21 IH; +PULMICORT0.5 MG/2 M IH
[2021-09-26 12:28] LABS: BASO # 0.02 K/mm3 (0.02-0.10); EOS # 0.03 K/mm3 (0.04-0.40); EOS % 0.7 % (1.0-5.0); HEMATOCRIT 37.6 % (37.0-47.0); HEMOGLOBIN 11.5 g/dL (12.5-16.0); LYMPH# 0.96 K/mm3 (1.50-4.00); MEAN CELL VOLUME 105 fl (78-100); MEAN CORPUSCULAR HEMOGLOBIN 32 pg (27-31); MEAN CORPUSCULAR HGB CONC 31 g/dL (33-37); MEAN PLATELET VOLUME 9.6 fl (7.4-10.4); MONO # 0.41 K/mm3 (0.20-0.80); NEU # 3.13 K/mm3 (1.40-6.50); PLATELET COUNT 162 K/mm3 (130-400); RED BLOOD COUNT 3.57 M/mm3 (4.10-5.30); WHITE BLOOD COUNT 4.6 K/mm3 (4.8-10.8)
[2021-09-26] MEDS ORDERED: IPRATROPIUM BROM3 M1 IH (12:34)
[2021-09-26] MEDS ORDERED: ROPINIROLE HYDRO2 MG PO (12:34)
[2021-09-26] MEDS ORDERED: COZAAR25 M1 PO (12:34)
[2021-09-26] MEDS ORDERED: MORPHINE S10 MG/0.5 PO (12:34)
[2021-09-26] MEDS ORDERED: BROVANA15 MCG/2 M IH (12:35)
[2021-09-26] MEDS ORDERED: ELIQUIS5 MG PO (12:35)
[2021-09-26] MEDS ORDERED: CLOPIDOGREL PO (12:37)
[2021-09-26] MEDS ORDERED: KLONOPIN 1MG1 MG PO (12:37)
[2021-09-26] MEDS ORDERED: BUMETANIDE0.5 M1 PO (12:37)
[2021-09-26] MEDS ORDERED: K-TAB10 MEQ PO (12:37)
[2021-09-26 12:43] LABS: ALBUMIN 4.2 g/dL (3.4-4.8)
[2021-09-26 12:44] LABS: POTASSIUM 4.4 mmol/L (3.5-5.1)
[2021-09-26 12:45] LABS: CALCIUM 9.7 mg/dL (8.3-10.5)
[2021-09-26 12:46] LABS: TOTAL PROTEIN 7.3 g/dL (6.2-8.1)
[2021-09-26 12:48] LABS: TOTAL BILIRUBIN 0.7 mg/dL (0.2-1.2)
[2021-09-26 12:56] LABS: D-DIMER 0.45 mg/L FEU (0.15-0.50)
[2021-09-26] MEDS ORDERED: PREDNISONE20 MG PO (13:38)
[2021-09-26 13:44] VITALS: BP 118/76
== END 2021-09-26 13:43 | disposition home or self-care (01) ==
LOC: ED 11:24
PROVIDERS: Nurse Practitioner Family
DX: R06.00 Dyspnea, unspecified (principal); F41.9 Anxiety disorder, unspecified; I48.91 Unspecified atrial fibrillation; Z87.09 Personal history of other diseases of the respiratory system; Z91.14 Patient's other noncompliance with medication regimen; Z79.01 Long term (current) use of anticoagulants; Z79.51 Long term (current) use of inhaled steroids

== ENCOUNTER → 2021-11-12 | Outpatient (CLI) | payer MEDICARE, OTHER ==
[~2021-11-12] MED LIST changes: +BROVANA15 MCG/2 M IH; +BUMETANIDE0.5 M1 PO; +CLOPIDOGREL PO; +COZAAR25 M1 PO; +ELIQUIS5 MG PO; +IPRATROPIUM BROM3 M1 IH; +K-TAB10 MEQ PO; +KLONOPIN 1MG1 MG PO; +MORPHINE S10 MG/0.5 PO; +ROPINIROLE HYDRO2 MG PO
[2021-11-12 15:48] LABS: BASO # 0.02 K/mm3 (0.02-0.10); EOS # 0.03 K/mm3 (0.04-0.40); EOS % 0.5 % (1.0-5.0); HEMATOCRIT 30.6 % (37.0-47.0); LYMPH# 0.83 K/mm3 (1.50-4.00); MEAN CELL VOLUME 104 fl (78-100); MEAN CORPUSCULAR HEMOGLOBIN 31 pg (27-31); MEAN CORPUSCULAR HGB CONC 29 g/dL (33-37); MEAN PLATELET VOLUME 9.2 fl (7.4-10.4); MONO # 0.52 K/mm3 (0.20-0.80); NEU # 4.22 K/mm3 (1.40-6.50); PLATELET COUNT 157 K/mm3 (130-400); RED BLOOD COUNT 2.93 M/mm3 (4.10-5.30); RED CELL DISTRIBUTION WIDTH 13.7 % (11.5-14.5); WHITE BLOOD COUNT 5.6 K/mm3 (4.8-10.8)
[2021-11-12 16:00] LABS: ALBUMIN 3.6 g/dL (3.4-4.8)
[2021-11-12 16:01] LABS: POTASSIUM 4.4 mmol/L (3.5-5.1)
[2021-11-12 16:02] LABS: CALCIUM 9.1 mg/dL (8.3-10.5)
[2021-11-12 16:03] LABS: TOTAL PROTEIN 6.3 g/dL (6.2-8.1)
[2021-11-12 16:05] LABS: TOTAL BILIRUBIN 0.5 mg/dL (0.2-1.2)
== END ==
LOC: LAB 15:36
PROVIDERS: Physician Assistant
DX: I50.22 Chronic systolic (congestive) heart failure (principal); R04.0 Epistaxis; I25.5 Ischemic cardiomyopathy; J43.2 Centrilobular emphysema; K92.1 Melena

== ENCOUNTER 2021-11-15 15:56 | Emergency (ER) | payer MEDICARE, OTHER ==
[~2021-11-15] VITALS: Ht 167.6 cm; Wt 42.8 kg
[2021-11-15 17:57] VITALS: BP 108/53
== END 2021-11-15 17:50 | disposition home or self-care (01) ==
LOC: ED 15:56
DX: I48.92 Unspecified atrial flutter (principal); R04.0 Epistaxis; J44.9 Chronic obstructive pulmonary disease, unspecified; Z87.891 Personal history of nicotine dependence; Z95.0 Presence of cardiac pacemaker; Z99.81 Dependence on supplemental oxygen; Z79.01 Long term (current) use of anticoagulants; Z79.02 Long term (current) use of antithrombotics/antiplatelets
CPT/HCPCS: 15972